=== PATIENT | female | born 1990 | race Caucasian/White ===

== ENCOUNTER 2017-03-17 00:29 | Observation (INO) | payer SELFPAY ==
[~2017-03-17] VITALS: Ht 164 cm; Wt 135.6 kg
[2017-03-17 01:42] LABS: GLUCOSE,POINT OF CARE 79 MG/DL (70-110)
[2017-03-17 01:48] VITALS: BP 132/65
[2017-03-17] MEDS ORDERED: PREN1TAB80 PO (01:48)
[2017-03-17] MEDS ORDERED: INFLUENZA VIRUS VACCINE QVS 2017-18 (3YR+)/PF 60 MCG/0.5 ML SYRINGE IM ONE (02:45)
== END 2017-03-17 02:40 | disposition home or self-care (01) ==
LOC: 4S 00:29
PROVIDERS: ADMIT Obstetrics & Gynecology; ATTEND Obstetrics & Gynecology
DX: O62.9 Abnormality of forces of labor, unspecified (principal); O48.0 Post-term pregnancy; O26.893 Other specified pregnancy related conditions, third trimester; R10.30 Lower abdominal pain, unspecified; Z3A.40 40 weeks gestation of pregnancy
CPT/HCPCS: 59025; 80307 ×8; 82962; G0378